=== PATIENT | male | born 1950 | race Caucasian/White ===

== ENCOUNTER → 2018-09-21 10:00 | Outpatient (CLI) | payer MEDICARE, SELFPAY ==
[2018-09-21 11:59] LABS: Alanine Aminotransferase 32 IU/L (21-72); Albumin 4.5 g/dL (3.5-5.0); Albumin Globulin Ratio 1.8 (1.0-2.8); Alkaline Phosphatase 55 U/L (38-126); Aspartate Aminotransferase 33 IU/L (17-59); BUN Creatinine Ratio 18.2 (6-22); Bilirubin Total 0.7 mg/dL (0.2-1.3); Blood Urea Nitrogen 20 mg/dL (9-20); Calcium 9.8 mg/dL (8.4-10.2); Carbon Dioxide 30 mmol/L (22-32); Chloride 101 mmol/L (98-107); Estimated Glomerular Filt Rate > 60.0 mL/min (>60); Globulin 2.5 g/dL (1.7-4.1); Glucose 75 mg/dL (80-110); HEMOLYSIS < 15 (0-50); Potassium 4.3 mmol/L (3.4-5.1); Sodium 140 mmol/L (137-145)
[2018-09-21 12:12] LABS: Free T4, Direct Thyroxine 1.13 ng/dL (0.78-2.19)
[2018-09-21 12:26] LABS: Prostate Specific Antigen Scrn 3.77 ng/mL (0.1-4.0); Thyroid Stimulating Hormone 2.58 uIU/mL (0.47-4.68)
== END ==
PROVIDERS: Visit Provider Internal Medicine
DX: E03.9 Hypothyroidism, unspecified (principal); I65.21 Occlusion and stenosis of right carotid artery; Z12.5 Encounter for screening for malignant neoplasm of prostate; Z13.1 Encounter for screening for diabetes mellitus; Z13.6 Encounter for screening for cardiovascular disorders; Z79.899 Other long term (current) drug therapy
CPT/HCPCS: 36415; 80053; 84439; 84443; G0103

== ENCOUNTER 2019-08-31 07:04 | Observation (INO) | payer MEDICARE, SELFPAY ==
[2019-08-31] VITALS (7 sets, daily range): BP systolic 105–161; BP diastolic 68–85; PULSE 55–69; RESP 12–16; TEMP 36.2–36.9; O2SAT 95–100; BMI 23.6
--- NOTE | 2019-08-31 07:18 | ED.GENADULT ---
HPI - General Adult General Chief complaint: Upper Respiratory Symptoms Stated complaint: walnut stuck in esophagus Time Seen by Provider: 08/31/19 07:05 Source: patient Mode of arrival: Ambulatory Limitations: no limitations History of Present Illness HPI narrative: 68-year-old male nonsmoker with history of throat cancer status post radical neck, chemotherapy and radiation many years ago presents with his in the chief complaint of a suspected esophageal foreign body. Last evening he was eating a cookie that had wall not in the frosting and he felt it get stuck. He has had a foreign body sensation ever since. He is guarding his secretions and is able to get some liquids down with extreme difficulty. He has had esophageal foreign bodies removed on a few prior occasions as well as esophageal dilation. He denies any fever chills. He has no chest pain or shortness of breath. Related Data Home Medications Medication Instructions Recorded Confirmed AMINOBENZOIC ACID/BIOTIN/CA (#B 1 cap PO Q DAY #0 02/09/11 10/03/18 COMPLEX) Coenzyme Q10/Vitamin E (#COQ10 IN 100 mg PO #0 02/09/11 10/03/18 OIL 100 MG-30 IU) Garlic (#GARLIC) 1 tab PO Q DAY #0 02/09/11 10/03/18 folic acid 0.4 mg PO QDAY #0 01/27/17 10/03/18 hyalur ac-chond sul-colg II-AA 20 mg PO QDAY #0 01/27/17 10/03/18 [Hyaluronic Acid (chond-collgn)] Previous Rx's Medication Instructions Recorded trazodone 50 mg tablet 50 mg PO BEDTIME PRN #30 tab 10/03/18 levothyroxine 88 mcg tablet 88 mcg PO Q DAY #90 tab 02/26/19 amoxicillin 500 mg tablet 500 mg PO TID #42 tab 05/09/19 clopidogrel 75 mg tablet See Rx Instructions .ROUTE 05/21/19 .COMPLEX #90 tablet pravastatin 20 mg tablet See Rx Instructions .ROUTE 05/21/19 .COMPLEX #90 tablet Allergies Allergy/AdvReac Type Severity Reaction Status Date / Time atorvastatin [From LIPITOR] AdvReac Intermediate MUSCLE Verified 08/31/19 07:13 rosuvastatin [From CRESTOR] AdvReac Intermediate Verified 08/31/19 07:13 Review of Systems Constitutional Constitutional: Denies chills, Denies fatigue, Denies fever(s), Denies frequent falls, Denies lethargy and Denies weakness Eyes Eyes: Denies change in vision, Denies eye discharge, Denies irritation and Denies loss of vision ENT Ears, Nose, Mouth, and Throat: Denies change in voice, Denies dizziness, Denies neck pain, Denies sore throat and Denies throat swelling Comments: foreign body Cardiovascular Cardiovascular: Denies chest pain, Denies irregular heart rhythm, Denies lightheadedness, Denies palpitations, Denies dyspnea, Denies dyspnea on exertion and Denies orthopnea Respiratory Respiratory: Denies cough, Denies dyspnea, Denies dyspnea on exertion and Denies wheezing Gastrointestinal Gastrointestinal: Denies abdominal pain, Denies change in bowel habits, Denies diarrhea, Denies nausea and Denies vomiting Musculoskeletal Musculoskeletal: Denies neck pain and Denies numbness Integumentary/Breasts Skin/Breast: Denies pruritus, Denies erythema, Denies rash and Denies wounds Neurologic Neurologic: Denies behavioral changes, Denies confusion, Denies dizziness, Denies frequent falls, Denies loss of vision, Denies numbness and Denies weakness Psychiatric Psychiatric: Denies anxiety, Denies behavioral changes, Denies confusion, Denies depression, Denies homicidal ideation and Denies suicidal ideation Endocrine Endocrine: Denies fatigue, Denies flushing and Denies palpitations Hematologic/Lymphatic Hematologic/Lymphatic: Denies easy bruising Allergic/Immunologic Allergic/Immunologic: Denies urticaria, Denies throat swelling and Denies wheezing Patient History Medical History Acquired hypothyroidism (Chronic 02/01/11) Carotid bruit (Chronic 02/01/11) Left inguinal hernia (Inactive) Occlusion of right carotid artery (Chronic 04/14/15) Surgical History History of esophageal dilatation (Inactive 01/27/12) Status post colonoscopy (Inactive) Family History Brother Age: 66 Diabetes mellitus Family history of diabetes mellitus (DM) Brother Age: 64 Family history of diabetes mellitus (DM) Diabetes mellitus Brother Age: 58 Family history of diabetes mellitus (DM) Diabetes mellitus Father Heart disease Grandfather Heart disease Mother Cancer Grandfather Heart disease Social History marital status: number of children: 0 household members: spouse lives independently: Yes caregiver/support person: No housing: house pets and animals: No education level: other (4 YEAR [employer]) occupational status: other (Retired) current occupational exposures/hazards: No Previous occupational history: Account Resolution Analyst travel history: recent ([place], 1 month in [place], April) leisure activities: exercise (Bicycling.) and reading Smoking Status: Never smoker Tobacco: How many years used: 0 quit status: quit date established (Never Started) second hand exposure: No alcohol intake: current substance use type: does not use and marijuana (Occasional.) Smoking Status: Never smoker alcohol intake frequency: holidays/special occasions only Substance Use Type: does not use Exam Narrative Exam Narrative: GEN: AOx3 and in mild distress EYES: Pupils are equal, round, and reactive to light and accommodation. Extraoccular muscles are intact bilaterally. There is no subconjunctival hemorrhage or exudate. ENT: no FB noted, airway patent CHEST: Lungs are clear to auscultation bilaterally and free of wheezes, rales, or rhonchi. Heart rate is regular rhythm, there are no murmurs, clicks, rubs, or gallops. There is no chest wall tenderness. ABD: Abdomen is soft and nontender. There is no guarding or rebound. Bowel sounds are normal in all 4 quadrants. There is no mass or organomegaly. EXT: Full painless ROM of all extremities with no loss of sensation or strength. SKIN: Warm, pink, and dry. No erythema or rash Initial Vital Signs Initial Vital Signs: Vital Signs Temperature 98.5 F 08/31/19 07:08 Pulse Rate 66 08/31/19 07:08 Respiratory Rate 15 08/31/19 07:08 Blood Pressure 161/85 H 08/31/19 07:08 Pulse Oximetry 99 08/31/19 07:08 Course Course Course Narrative: patient given glucagon and warmed soda, no resolution in symptoms. COVID ordered. Surgery called Dr. Henderson will take to endoscopy this morning Orders Ordered: Lactated Ringer's (Lactated Ringers) 1,000 mls @ 200 mls/hr IV CONT TEJAS Last Admin: 08/31/19 10:18 Dose: 200 mls/hr Documented by: JCANTRE Discontinued Medications Fentanyl (Sublimaze) 250 mcg IV INTRA-OP ONE Stop: 08/31/19 10:13 Glucagon (Glucagen) 1 mg IV NOW ONE Stop: 08/31/19 07:19 Last Admin: 08/31/19 07:31 Dose: 1 mg Documented by: KBROTEM Lidocaine HCl (Lidocaine Hcl) 20 ml TOP NOW ONE Stop: 08/31/19 10:14 Midazolam HCl (Versed) 5 mg IV INTRA-OP ONE Stop: 08/31/19 10:13 Vital Signs Vital signs: Vital Signs - 8 hr 08/31/19 07:08 Temperature 98.5 F Pulse Rate 66 Respiratory Rate 15 Blood Pressure 161/85 H Pulse Oximetry 99 Medical Decision Making Lab Data Labs: Lab Results 08/31/19 Range/Units 08:21 COVID-19 PCR Negative (Negative) Discharge Plan Departure Patient Disposition: Admitted to Surgery Clinical Impression: Esophageal foreign body Qualifiers: Encounter type: initial encounter Qualified Code(s): T18.108A - Unspecified foreign body in esophagus causing other injury, initial encounter Discharge Date/Time: 08/31/19 10:02 Admit Date/Time: 08/31/19 09:39 Admit Provider: Adithya Henderson
--- NOTE | 2019-08-31 07:28 | PC.NURSE ---
pt able to swallow secretions but unable to take PO at this time. Pt has a walnut stuck in esophagus. Pt has hx of same.
[2019-08-31] MEDS: GLUCAGON,HUMAN RECOMBINANT 1 MG/ML VIAL IV (07:31)
--- NOTE | 2019-08-31 08:04 | PC.NURSE ---
Pt able to take PO pepsi,sx improved since arriving but he can still tell its in his esophagus
[2019-08-31 09:23] LABS: COVID19 -Nasal RAPID Negative (Negative)
[2019-08-31] MEDS: LACTATED RINGERS 1,000 ML 200 ML IV (10:18)
--- NOTE | 2019-08-31 10:42 | SUR.OPER ---
See Anesthesia notes for vitals and medication administration
--- NOTE | 2019-08-31 10:42 | PM.OP.ENDO ---
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 Benson we were able to proceed safely. Anesthesiologist was utilized because the patient has history of carcinoma of the pharynx and is status post radiation with total occlusion of the right internal carotid and 50% occlusion or stenosis of the left internal carotid. Patient was properly identified during surgical pause topical pharyngeal Cetacaine spray was administered the flexible fiberoptic gastroscope inserted transorally into the hypopharynx where there was a large food bolus impacted. This was sub divided and gently advanced into the esophagus and into the stomach this was followed by irrigation. Finally I inspected the area of stricture from prior radiation and I see no evidence of recurrent tumor. Numerous photographs of this area were taken. Procedure was very well tolerated. Scope withdrawal time: 4 Sedation minutes: 8 Findings: stricture
--- NOTE | 2019-08-31 14:05 | SUR.PHASEII ---
Late entry: Pt gradually had return of swallow reflex. Tolerated swallowing water, left soon after that occurred and left in stable condition.
== END 2019-08-31 11:23 | disposition home or self-care (01) ==
LOC: ED 08:52 → AC 09:40
PROVIDERS: Admitting Provider Surgery; Emergency Provider Emergency Medicine; PCP Internal Medicine; Referring Provider Emergency Medicine; Visit Provider Surgery
PROC: 0DJ08ZZ Inspection of Upper Intestinal Tract, Via Natural or Artificial Opening Endoscopic (ICD-10-PCS; CPT 43235; principal; 2019-08-31 10:00)
DX: T18.128A Food in esophagus causing other injury, initial encounter (principal); R13.10 Dysphagia, unspecified; Z85.819 Personal history of malignant neoplasm of unspecified site of lip, oral cavity, and pharynx; Z11.59 Encounter for screening for other viral diseases
CPT/HCPCS: 43247; 36415; 87635; 96374; 99152; 99284; G0378; J1610

== ENCOUNTER → 2019-10-08 07:47 | Outpatient (CLI) | payer MEDICARE, SELFPAY ==
[2019-10-08 08:46] LABS: Alanine Aminotransferase 38 IU/L (<50); Albumin 4.2 g/dL (3.5-5.0); Albumin Globulin Ratio 1.8 (1.0-2.8); Alkaline Phosphatase 56 U/L (38-126); Aspartate Aminotransferase 45 IU/L (17-59); BUN Creatinine Ratio 22.4 (6-22); Bilirubin Total 0.5 mg/dL (0.2-1.3); Blood Urea Nitrogen 24 mg/dL (9-20); Calcium 9.4 mg/dL (8.4-10.2); Carbon Dioxide 30 mmol/L (22-32); Chloride 103 mmol/L (98-107); Cholesterol 187 mg/dL (140-199); Estimated Glomerular Filt Rate > 60.0 mL/min (>60); Globulin 2.4 g/dL (1.7-4.1); Glucose 94 mg/dL (80-110); HDL Cholesterol 74 mg/dL (40-60); HEMOLYSIS < 15 (0-50); LDL Cholesterol Calculated 98 mg/dL (<100); Potassium 4.4 mmol/L (3.4-5.1); Sodium 137 mmol/L (137-145); Total Protein 6.6 g/dL (6.3-8.2); Triglycerides 75 mg/dL (35-150)
[2019-10-08 08:59] LABS: Free T4, Direct Thyroxine 0.99 ng/dL (0.78-2.19)
[2019-10-08 09:15] LABS: Prostate Specific Antigen Scrn 3.32 ng/mL (0.1-4.0)
[2019-10-08 10:13] LABS: Thyroid Stimulating Hormone 2.57 uIU/mL (0.47-4.68)
== END ==
PROVIDERS: PCP Internal Medicine; Referring Provider Internal Medicine; Visit Provider Internal Medicine
DX: E03.9 Hypothyroidism, unspecified (principal); I65.21 Occlusion and stenosis of right carotid artery; Z12.5 Encounter for screening for malignant neoplasm of prostate; Z13.220 Encounter for screening for lipoid disorders; Z13.6 Encounter for screening for cardiovascular disorders
CPT/HCPCS: 36415; 80053; 80061; 84439; 84443; G0103

== ENCOUNTER → 2020-10-06 08:21 | Outpatient (CLI) | payer MEDICARE, SELFPAY ==
[2020-10-06 08:53] LABS: COVID19 -Nasal RAPID Negative (Negative)
== END ==
PROVIDERS: PCP Internal Medicine; Visit Provider Physician Assistant
DX: Z20.822 Contact with and (suspected) exposure to COVID-19 (principal)
CPT/HCPCS: 87635

== ENCOUNTER → 2020-10-30 07:30 | Outpatient (CLI) | payer MEDICARE, SELFPAY ==
[2020-10-30 09:00] LABS: Alanine Aminotransferase 34 IU/L (<50); Albumin 4.3 g/dL (3.5-5.0); Albumin Globulin Ratio 2.3 (1.0-2.8); Alkaline Phosphatase 60 U/L (38-126); Aspartate Aminotransferase 46 IU/L (17-59); BUN Creatinine Ratio 28.4 (6-22); Bilirubin Total 0.7 mg/dL (0.2-1.3); Blood Urea Nitrogen 27 mg/dL (9-20); Calcium 9.4 mg/dL (8.4-10.2); Carbon Dioxide 27 mmol/L (22-32); Chloride 104 mmol/L (98-107); Cholesterol 193 mg/dL (140-199); Estimated Glomerular Filt Rate > 60.0 mL/min (>60); Globulin 1.9 g/dL (1.7-4.1); Glucose 88 mg/dL (80-110); HDL Cholesterol 90 mg/dL (40-60); HEMOLYSIS < 15 (0-50); LDL Cholesterol Calculated 88 mg/dL (<100); Potassium 4.4 mmol/L (3.4-5.1); Sodium 136 mmol/L (137-145); Total Protein 6.2 g/dL (6.3-8.2); Triglycerides 76 mg/dL (35-150)
[2020-10-30 09:14] LABS: Free T4, Direct Thyroxine 1.09 ng/dL (0.78-2.19)
[2020-10-30 09:27] LABS: Prostate Specific Antigen Scrn 4.53 ng/mL (0.1-4.0)
[2020-10-30 09:28] LABS: Thyroid Stimulating Hormone 2.23 uIU/mL (0.47-4.68)
== END ==
PROVIDERS: PCP Internal Medicine; Referring Provider Internal Medicine; Visit Provider Internal Medicine
DX: I70.90 Unspecified atherosclerosis (principal); E03.9 Hypothyroidism, unspecified; Z12.5 Encounter for screening for malignant neoplasm of prostate; E78.2 Mixed hyperlipidemia
CPT/HCPCS: 36415; 80053; 80061; 84439; 84443; G0103

== ENCOUNTER → 2020-11-13 14:06 | Outpatient (CLI) | payer MEDICARE, SELFPAY ==
[2020-11-14 11:16] LABS: PSA Free % 17.3 % (.); PSA, Total 6.4 ng/mL (0.0-4.0)
== END ==
PROVIDERS: PCP Internal Medicine; Referring Provider Internal Medicine; Visit Provider Internal Medicine
DX: R97.20 Elevated prostate specific antigen [PSA] (principal)
CPT/HCPCS: 36415; 84153; 84154

== ENCOUNTER → 2021-04-01 14:37 | Outpatient (CLI) | payer MEDICARE, SELFPAY ==
[2021-04-01 16:52] LABS: BUN Creatinine Ratio 20.9 (6-22); Blood Urea Nitrogen 24 mg/dL (9-20); Calcium 9.4 mg/dL (8.4-10.2); Carbon Dioxide 30 mmol/L (22-32); Chloride 104 mmol/L (98-107); Estimated Glomerular Filt Rate > 60.0 mL/min (>60); Glucose 83 mg/dL (80-110); HEMOLYSIS < 15 (0-50); Potassium 4.2 mmol/L (3.4-5.1); Sodium 138 mmol/L (137-145)
== END ==
PROVIDERS: PCP Internal Medicine; Referring Provider Surgery Vascular Surgery; Visit Provider Surgery Vascular Surgery
DX: I65.23 Occlusion and stenosis of bilateral carotid arteries (principal)
CPT/HCPCS: 36415; 80048

== ENCOUNTER → 2021-04-06 09:09 | Outpatient (CLI) | payer MEDICARE, SELFPAY ==
--- NOTE | 2021-04-06 | DI.CT.S_ITS ---
PROCEDURE: CT ANGIO HEAD AND NECK INDICATIONS: BILATERAL CAROTID ARTERY STENOSIS TECHNIQUE: Pre-contrast 4.5 mm thick sections acquired from the foramen magnum to the vertex. After the administration of intravenous contrast, 1 mm thick sections acquired from the aortic arch through the [place]. Post-contrast 4.5 mm thick sections then re-acquired from the foramen magnum to the vertex. 3-dimensional zarcola-knatlfkfu-tgtfryjvjc (MIP) and/or volume rendering reformats were acquired of the central intracranial vasculature and neck separately. COMPARISON: None. FINDINGS: Image quality: Excellent. BRAIN: CSF spaces: Ventricles are normal in size and shape. Basal cisterns are patent. No extra-axial fluid collections. Brain: No midline shift. No intracranial bleeds or masses. Jett-white matter interface appears intact. Skull and face: Calvarium and facial bones appear intact, without suspicious lesions. Orbits appear normal. Sinuses: Sinuses and mastoids are clear. HEAD CT ANGIOGRAPHY: Anterior circulation: Complete occlusion of the right ICA with the exception of some minimal opacification of the carotid terminus due to retrograde flow across the jcitnu-hp-Xnlbhv. The left intracranial ICA is widely patent. No hemodynamically significant stenosis of the visualized anterior or middle cerebral artery branches. Posterior circulation: V4 segments are patent. Cerebellar arteries and posterior arteries and basilar artery appear normal. NECK CT ANGIOGRAPHY: Carotid system: Standard 3 vessel aortic arch anatomy. The bilateral common carotid arteries are widely patent, with the exception of mild athero narrowing at the distal common carotid arteries near the bifurcation. There is moderate narrowing of the bilateral carotid bulbs, right greater than left. Complete occlusion of the right extracranial internal carotid artery. Moderate to high-grade stenosis of the left ICA origin for short segment with no narrowing of the remainder of the left ICA. Posterior circulation: Hypoplastic right vertebral artery. No significant atherosclerotic narrowing of the extracranial vertebral arteries. Soft tissues: Visualized neck soft tissues demonstrate no suspicious abnormalities. Bones: No suspicious bony lesions. Visualized cervical spine appears normally aligned. IMPRESSION: Complete occlusion of the entire right internal carotid artery. High-grade stenosis at the left ICA origin for short segment. Moderate atherosclerotic narrowing of the bilateral carotid bifurcations/bulbs. Any quantitative measurements of stenosis were performed using NASCET criteria. Dictated by: Catarino Moise M.D. on 04/06/2021 at 12:00 Approved by: Catarino Moise M.D. on 04/06/2021 at 12:30
== END ==
PROVIDERS: PCP Internal Medicine; Referring Provider Surgery Vascular Surgery; Visit Provider Surgery Vascular Surgery
DX: I65.23 Occlusion and stenosis of bilateral carotid arteries (principal)
CPT/HCPCS: 70496; 70498

== ENCOUNTER → 2021-06-26 07:07 | Outpatient (CLI) | payer MEDICARE, SELFPAY ==
[2021-06-27 12:10] LABS: PSA Free % 16.6 % (.); PSA, Total 3.5 ng/mL (0.0-4.0)
== END ==
PROVIDERS: PCP Internal Medicine; Referring Provider Internal Medicine; Visit Provider Internal Medicine
DX: R97.20 Elevated prostate specific antigen [PSA] (principal)
CPT/HCPCS: 36415; 84153; 84154

== ENCOUNTER → 2021-12-29 08:09 | Outpatient (CLI) | payer MEDICARE, SELFPAY ==
[2021-12-29 09:24] LABS: Alanine Aminotransferase 40 IU/L (<50); Albumin 4.3 g/dL (3.5-5.0); Albumin Globulin Ratio 1.8 (1.0-2.8); Alkaline Phosphatase 61 U/L (38-126); Aspartate Aminotransferase 45 IU/L (17-59); BUN Creatinine Ratio 21.6 (6-22); Bilirubin Total 0.6 mg/dL (0.2-1.3); Blood Urea Nitrogen 22 mg/dL (9-20); Calcium 9.3 mg/dL (8.4-10.2); Carbon Dioxide 29 mmol/L (22-32); Chloride 101 mmol/L (98-107); Cholesterol 190 mg/dL (140-199); Estimated Glomerular Filt Rate > 60 mL/min (>60); Globulin 2.4 g/dL (1.7-4.1); Glucose 88 mg/dL (80-110); HDL Cholesterol 74 mg/dL (40-60); HEMOLYSIS < 15 (0-50); LDL Cholesterol Calculated 105 mg/dL (<100); Potassium 4.2 mmol/L (3.4-5.1); Sodium 138 mmol/L (137-145); Total Protein 6.7 g/dL (6.3-8.2); Triglycerides 57 mg/dL (35-150)
[2021-12-29 09:56] LABS: Prostate Specific Antigen 3.88 ng/mL (0.10-4.00)
[2021-12-29 10:05] LABS: Free T4, Direct Thyroxine 1.12 ng/dL (0.78-2.19)
== END ==
PROVIDERS: PCP Internal Medicine; Referring Provider Internal Medicine; Visit Provider Internal Medicine
DX: E03.9 Hypothyroidism, unspecified (principal); R97.20 Elevated prostate specific antigen [PSA]; E78.2 Mixed hyperlipidemia
CPT/HCPCS: 36415; 80053; 80061; 84153; 84439; 84443

== ENCOUNTER → 2022-03-15 10:22 | Outpatient (CLI) | payer MEDICARE, SELFPAY ==
[2022-03-15 14:31] LABS: COVID19 -Nasal RAPID Negative (Negative)
== END ==
PROVIDERS: PCP Internal Medicine; Visit Provider Surgery
DX: Z20.822 Contact with and (suspected) exposure to COVID-19 (principal); Z01.812 Encounter for preprocedural laboratory examination
CPT/HCPCS: 87635; C9803

== ENCOUNTER 2022-03-16 09:39 | Day surgery (SDC) | payer MEDICARE, SELFPAY ==
[2022-03-16 10:13] VITALS: BMI 24.3
[2022-03-16] MEDS: LACTATED RINGERS 1,000 ML 42 ML IV (10:32)
[2022-03-16 10:34] VITALS: BP 135/80; PULSE 58; RESP 16; TEMP 36.5; O2SAT 100
--- NOTE | 2022-03-16 11:25 | PM.HP.1 ---
History of Present Illness History of Present Illness Date Patient Seen: 03/16/22 Time Patient Seen: 11:25 Chief complaint: SDC Narrative: The patient presents for colorectal screening. Personal history of colonic polyps, last colonoscopy 5 years ago. No personal or family history of colon cancer. On further history denies any recent gastrointestinal symptoms. No nausea, vomiting, abdominal pain, loss of appetite, unexplained weight loss, change in bowel habits, or blood per rectum. Patient History Medical History Acquired hypothyroidism (02/01/11) Atherosclerosis Carotid bruit (02/01/11) Elevated PSA Left inguinal hernia Mixed hyperlipidemia Occlusion of right carotid artery (04/14/15) Surgical History History of esophageal dilatation (01/27/12) Status post colonoscopy Family & Social History Family History Brother Age: 68 Diabetes mellitus Family history of diabetes mellitus (DM) Brother Age: 66 Family history of diabetes mellitus (DM) Diabetes mellitus Brother Age: 60 Family history of diabetes mellitus (DM) Diabetes mellitus Father Heart disease Grandfather Heart disease Mother Cancer Grandfather Heart disease Social History: household members spouse lives independently Yes caregiver/support person No Tobacco & Substance use: Smoking Status Never smoker alcohol intake current alcohol intake frequency a few times a week Substance Use Type does not use Meds Home Medications and Allergies Home Medications Medication Instructions Recorded Confirmed Type folic acid 400 mcg tablet 0.4 mg PO QDAY ##0 01/27/17 03/16/22 History hyalur ac-chond sul-colg II-AA 40 20 mg PO QDAY ##0 01/27/17 03/16/22 History mg-80 mg-400 mg capsule (Hyaluronic Acid(with chondroitin-collagenII)) Coenzyme Q10/Vitamin E 500 mg PO DAILY ##0 10/05/19 03/16/22 History turmeric root extract 500 mg 500 mg PO DAILY 10/05/19 03/16/22 History capsule clopidogrel 75 mg tablet 75 mg PO DAILY #90 tabs 12/21/21 03/16/22 Rx levothyroxine 88 mcg tablet 88 mcg PO Q DAY #90 tabs 12/21/21 03/16/22 Rx pravastatin 20 mg tablet 20 mg PO BEDTIME #90 tabs 12/21/21 03/16/22 Rx Allergies Allergy/AdvReac Type Severity Reaction Status Date / Time atorvastatin [From LIPITOR] AdvReac Intermediate MUSCLE Verified 03/16/22 10:10 rosuvastatin [From CRESTOR] AdvReac Intermediate Verified 03/16/22 10:10 Exam Vital Signs (past 8 hours): - 03/16/22 10:34 Temperature 97.7 F Pulse Rate 58 L Respiratory Rate 16 Blood Pressure 135/80 Pulse Oximetry 100 Oxygen Delivery Method Room Air Oxygen Delivery Method Room Air Narrative Exam Narrative: General adult man alert oriented no acute distress Abdomen soft nontender nondistended Assessment & Plan Assessment and plan (1) Personal history of colonic polyps: Status: Acute Assessment & Plan narrative: The patient requires colorectal screening and colonoscopy is recommended. Technical details were discussed. Risks, benefits, alternatives explained. Risks including but not limited to myocardial infarction, aspiration, bleeding, pain, missed lesion, incomplete examination, need for further radiographic studies, colonic perforation, and need for major abdominal surgery were discussed. All questions were answered to their satisfaction, and they are in agreement with this plan. Time Spent With Patient Critical Care time: I spent a total of [] minutes of critical care time on this patient's care today; this time is exclusive of procedural time.
--- NOTE | 2022-03-16 11:26 | PM.OP.COLON ---
Operative Date/Time/Diagnoses Date of procedure: 03/16/22 Time of procedure: 11:26 Pre-op diagnosis: Personal history of colonic polyps Post-op diagnosis: same Procedure & Clinicians Study performed: Colonoscopy Same procedure as scheduled: Yes Indications: Personal history of colonic polyps Surgeon: Rio Cooper Procedure Notes Procedure in detail: The history and physical was performed/updated and the patient is ASA class is 3. The procedure was discussed in detail with the patient. Potential risks complications including infection, bleeding, missed diagnosis, perforation, need for surgery, and were explained. Their questions were answered and informed consent was obtained. Patient was brought to the procedure room and placed standard monitoring equipment. The patient's vital signs were monitored continuously throughout the entire procedure. Prior to starting time-out was performed. The patient was placed in the left lateral recumbent position. Procedural sedation was administered by anesthesia. Examination began with a thorough inspection of the perianal area there was no evidence of fissures, fistulae, external hemorrhoids or cutaneous malignancy. The colonoscopy scope was then placed into the anal canal and was advanced to the cecum, which was identified by the ileocecal valve, the appendiceal orifice and the confluence of the taenia. The scope was then slowly withdrawn examining colon thoroughly in all directions, irrigating it of any residual stool. FINDINGS 1. No masses polyps or inflammation 2. Internal hemorrhoids The patient tolerated the procedure well. They will be discharged once criteria are met. The prep was of good/excellent quality. The withdrawl time was 7 minutes. Specimen(s): none sent Impression: Normal colonoscopy Post-procedure Recommendations: Colonoscopy in 10 years and High fiber diet Disposition: same day surgery
[2022-03-16 12:00] VITALS: BP 95/65; PULSE 52; RESP 20; TEMP 36.1; O2SAT 100
[2022-03-16 12:04] VITALS: BP 97/70; PULSE 57; RESP 17; TEMP 36.1; O2SAT 95
[2022-03-16 12:08] VITALS: BP 100/72; PULSE 50; RESP 18; TEMP 36.3; O2SAT 96
[2022-03-16 12:20] VITALS: BP 100/69; PULSE 51; RESP 17; O2SAT 96
--- NOTE | 2022-03-16 12:26 | SUR.PHASEII ---
1226: Pt A&Ox4, denies any distress, abdomen soft, and ready to discharge home. Discharge instructions reviewed with pt with time allowed for questions. IV DC'd intact. Pt left unit via w/c to ER entrance with all personal belongings and written instructions. Spouse to transport pt home.
== END 2022-03-16 12:28 | disposition home or self-care (01) ==
PROVIDERS: PCP Internal Medicine; Referring Provider Surgery; Visit Provider Surgery
PROC: 0DJD8ZZ Inspection of Lower Intestinal Tract, Via Natural or Artificial Opening Endoscopic (ICD-10-PCS; CPT 45378; principal; 2022-03-16 10:45)
DX: Z86.010 Personal history of colon polyps (principal); K64.8 Other hemorrhoids
CPT/HCPCS: 45378; J2704

== ENCOUNTER → 2022-08-04 12:43 | Outpatient (CLI) | payer MEDICARE, SELFPAY ==
--- NOTE | 2022-08-04 | DI.MRI.S_ITS ---
PROCEDURE: MR KNEE RT WO CON INDICATIONS: RIGHT KNEE PAIN TECHNIQUE: Noncontrast sagittal PD fast spin echo and T2 fast spin echo with fat saturation, sagittal 3-D FLASH with fat saturation; coronal T1 spin echo and PD fast spin echo with fat saturation, and axial PD fast spin echo with fat saturation through the knee. COMPARISON: None. FINDINGS: Image quality: Excellent. Menisci: The medial and lateral menisci demonstrate normal morphology and internal signal. The meniscal root ligaments are intact. Cruciate ligaments: The anterior and posterior cruciate ligaments are intact. Medial structures: The medial collateral ligament appears mildly thickened near its femoral insertion.. The posterior oblique ligament, semimembranosus tendon insertions, oblique popliteal ligament, and meniscocapsular junction appear intact. Visualized portions of the pes anserinus tendons appear normal. No abnormal bursal fluid. Lateral structures: The lateral collateral ligament is thickened at its femoral insertion. The long and short heads of the biceps femoris tendon appear intact. The popliteus tendon appears normal; the popliteofibular ligament appears intact. Iliotibial band appears normal. Anterior structures: Distal quadriceps tendinosis at its superior patellar insertion is seen. Proximal patellar tendinosis at its inferior patellar insertion is also noted. Patellar alignment is normal. No femoral trochlear dysplasia or ventral trochlear prominence. No edema in the infrapatellar fat pad. Bones and cartilage: No bone marrow contusions or fractures. 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 Joint space: There is small knee joint fluid. There is a tiny Ng's cyst. Normal appearing synovial plicae are incidentally noted. IMPRESSION: 1. 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 No fracture or dislocation. 2. No evidence of focal meniscal tear. 3. Low-grade MCL and LCL sprain/partial-thickness tear near their femoral condylar insertions. The cruciate ligaments are intact. 4. Distal quadriceps tendinosis and proximal patellar tendinosis. No tendon rupture. 5. Small joint effusion and tiny Ng's cyst. No gross loose bodies. Dictated by: Lisandro Gaviria M.D. on 08/04/2022 at 14:54 Approved by: Lisandro Gaviria M.D. on 08/04/2022 at 15:12
== END ==
PROVIDERS: PCP Internal Medicine; Referring Provider Orthopaedic Surgery; Visit Provider Orthopaedic Surgery
DX: S83.411A Sprain of medial collateral ligament of right knee, initial encounter (principal); S76.111A Strain of right quadriceps muscle, fascia and tendon, initial encounter; S83.421A Sprain of lateral collateral ligament of right knee, initial encounter; M17.11 Unilateral primary osteoarthritis, right knee; M94.261 Chondromalacia, right knee; M25.561 Pain in right knee; M25.562 Pain in left knee
CPT/HCPCS: 73721

== ENCOUNTER → 2023-01-07 08:23 | Outpatient (CLI) | payer MEDICARE, SELFPAY ==
[2023-01-07 11:00] LABS: Free T4, Direct Thyroxine 1.19 ng/dL (0.78-2.19)
[2023-01-07 11:14] LABS: Thyroid Stimulating Hormone 1.73 uIU/mL (0.47-4.68)
[2023-01-07 11:18] LABS: HEMOLYSIS < 15 (0-50); Prostate Specific Antigen 7.06 ng/mL (0.10-4.00)
[2023-01-07 11:26] LABS: Alanine Aminotransferase 33 IU/L (<50); Albumin 4.2 g/dL (3.5-5.0); Albumin Globulin Ratio 1.8 (1.0-2.8); Alkaline Phosphatase 54 U/L (38-126); Aspartate Aminotransferase 46 IU/L (17-59); Bilirubin Total 0.8 mg/dL (0.2-1.3); Blood Urea Nitrogen 21 mg/dL (9-20); Calcium 9.6 mg/dL (8.4-10.2); Carbon Dioxide 28 mmol/L (22-32); Chloride 104 mmol/L (98-107); Cholesterol 180 mg/dL (140-199); Estimated Glomerular Filt Rate > 60 mL/min (>60); Globulin 2.4 g/dL (1.7-4.1); Glucose 93 mg/dL (80-110); HDL Cholesterol 70 mg/dL (40-60); LDL Cholesterol Calculated 98 mg/dL (<100); Potassium 4.8 mmol/L (3.4-5.1); Sodium 136 mmol/L (137-145); Total Protein 6.6 g/dL (6.3-8.2); Triglycerides 60 mg/dL (35-150)
== END ==
PROVIDERS: PCP Internal Medicine; Referring Provider Internal Medicine; Visit Provider Internal Medicine
DX: R97.20 Elevated prostate specific antigen [PSA] (principal); E78.2 Mixed hyperlipidemia; E03.9 Hypothyroidism, unspecified
CPT/HCPCS: 36415; 80053; 80061; 84153; 84439; 84443

== ENCOUNTER → 2023-01-17 11:38 | Outpatient (CLI) | payer MEDICARE, SELFPAY ==
[2023-01-21 10:22] LABS: PSA Free % 22.4 % (.); PSA, Total 2.9 ng/mL (0.0-4.0)
== END ==
PROVIDERS: PCP Internal Medicine; Referring Provider Internal Medicine; Visit Provider Internal Medicine
DX: R97.20 Elevated prostate specific antigen [PSA] (principal)
CPT/HCPCS: 36415; 84153; 84154

== ENCOUNTER → 2023-08-10 11:13 | Outpatient (CLI) | payer MEDICARE, SELFPAY ==
--- NOTE | 2023-08-10 11:13 | DI.RAD.S_ITS ---
PROCEDURE: ESOPHOGRAM W/AIR INDICATIONS: esophageal stricture COMPARISON: None. FINDINGS: Function: There is normal esophageal peristalsis. No elicited gastroesophageal reflux. There was delayed transit of the barium tablet through a focal stenosis at the thoracic inlet. Only after copious amounts of water were consumed by the patient did the tablet dissolve and pass into the gastric fundus. Morphology: Air-contrast images demonstrate normal mucosal morphology. A focal stenosis is present at the level of the thoracic inlet. Limited images of the stomach demonstrate normal appearance. IMPRESSION: 1. Focal stenosis present at the level of the thoracic inlet. The patient was not able to ingest the barium tablet. Only after the tablet partially dissolved did it pass into the distal esophagus. 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 2. No esophageal dysmotility or other mucosal abnormalities. Dictated by: Izabel Vazquez M.D. on 08/10/2023 at 16:43 Approved by: Izabel Vazquez M.D. on 08/10/2023 at 16:52
== END ==
PROVIDERS: PCP Internal Medicine; Referring Provider Internal Medicine; Visit Provider Internal Medicine
DX: K22.2 Esophageal obstruction (principal)
CPT/HCPCS: 74220

== ENCOUNTER → 2024-01-05 07:11 | Outpatient (CLI) | payer MEDICARE, SELFPAY ==
[2024-01-05 09:24] LABS: Alanine Aminotransferase 28 IU/L (<50); Albumin 4.1 g/dL (3.5-5.0); Albumin Globulin Ratio 2.1 (1.0-2.8); Alkaline Phosphatase 61 U/L (38-126); Aspartate Aminotransferase 38 IU/L (17-59); BUN Creatinine Ratio 25.3 (6-22); Bilirubin Total 0.8 mg/dL (0.2-1.3); Blood Urea Nitrogen 25 mg/dL (9-20); Calcium 9.6 mg/dL (8.4-10.2); Carbon Dioxide 26 mmol/L (22-32); Chloride 104 mmol/L (98-107); Cholesterol 188 mg/dL (140-199); Estimated Glomerular Filt Rate > 60 mL/min (>60); Glucose 89 mg/dL (80-110); HDL Cholesterol 76 mg/dL (40-60); HEMOLYSIS < 15 (0-50); LDL Cholesterol Calculated 101 mg/dL (<100); Potassium 4.5 mmol/L (3.4-5.1); Sodium 137 mmol/L (137-145); Total Protein 6.1 g/dL (6.3-8.2); Triglycerides 57 mg/dL (35-150)
[2024-01-05 09:53] LABS: Prostate Specific Antigen 4.39 ng/mL (0.10-4.00)
[2024-01-05 09:55] LABS: Thyroid Stimulating Hormone 1.91 uIU/mL (0.47-4.68)
== END ==
PROVIDERS: PCP Internal Medicine; Referring Provider Internal Medicine; Visit Provider Internal Medicine
DX: E78.2 Mixed hyperlipidemia (principal); R97.20 Elevated prostate specific antigen [PSA]; E03.9 Hypothyroidism, unspecified; K40.90 Unilateral inguinal hernia, without obstruction or gangrene, not specified as recurrent
CPT/HCPCS: 36415; 80053; 80061; 84153; 84439; 84443

== ENCOUNTER 2024-02-20 07:53 | Day surgery (SDC) | payer MEDICARE, SELFPAY ==
--- NOTE | 2024-02-20 | PATH_ITS ---
[facility] Accession Number: [id number] No. of containers..02 Tissue . 01 Material submitted: . PART A: esophagus, E-G Junction - GEJ PART B: esophagus - MID ESOPHAGUS . 01 Diagnosis: A. GE JUNCTION: Squamocolumnar junctional mucosa with changes consistent with reflux. No goblet cell metaplasia identified on AB/PAS stain, with control staining appropriately. No fungal organisms, dysplasia, or malignancy. . B. MID ESOPHAGUS, BIOPSY: Esophageal squamous mucosa with increased intraepithelial eosinophils (up to 28 per high-power field). Additional chronic and active inflammation also identified. No fungal organisms identified on AB/PAS stain with control staining appropriately. No dysplasia or malignancy. See comment. V 02/28/2024 1214 Local . 01 Comment: B. The presence of increased intraepithelial eosinophils raises the possibility of eosinophilic esophagitis in the appropriate clinical setting. Differential diagnosis also includes severe reflux alterations and infectious etiologies, particularly margarito organisms, despite the absence of infectious organisms in this sample. Clinical correlation is recommended. . 01 Electronically signed: . Laine Lund MD, Pathologist NPI- [id number] . 01 Gross description: . A. Received in formalin with two patient identifiers and GEJ, are multiple mendes soft tissue fragments aggregating to 0.6 x 0.4 x 0.1 cm. Filtered and submitted in cassette A1. B. Received in formalin with two patient identifiers and mid esophagus, are two mendes soft tissue fragments 0.4 to 0.5 cm in greatest dimension. Submitted in cassette B1. ([id number]) /[facility] 02/23/2024 1028 Local . 01 Pathologist provided ICD-10: K21.00, K21.9, K20.0 . 01 CPT . 543674, 450610, 563235, [id number] Specimen Comment: A courtesy copy of this report has been sent to [phone] Performed at: [address] [id number] MD Jack Ansari MD Phone: [phone]
[2024-02-20 08:21] VITALS: BP 123/72; PULSE 50; RESP 16; TEMP 36.4; O2SAT 99
--- NOTE | 2024-02-20 08:56 | P.HP_ITS ---
History of Present Illness History of Present Illness Date Patient Seen: 02/20/24 Time Patient Seen: 08:56 Chief complaint: SDC Narrative: 73 yo male here for EGD and further dilatation. I reviewed the note by Dr Gonzalez. No significant changes. He was dilated to 13.5 mm back in September. He is off Plavix times 6-7 days. [facility] Medical History Rupture of right quadriceps muscle Personal history of colonic polyps Elevated PSA Atherosclerosis Mixed hyperlipidemia Occlusion of right carotid artery (04/14/15) Carotid bruit (02/01/11) Acquired hypothyroidism (02/01/11) Left inguinal hernia Surgical History [place] teeth removed (10/31/72) Status post neck dissection (03/18/98) S/P hernia repair (01/27/17) History of esophageal dilatation (01/27/12) Status post colonoscopy Family History Brother Age: 70 Diabetes mellitus Family history of diabetes mellitus (DM) Brother Age: 68 Family history of diabetes mellitus (DM) Diabetes mellitus Brother Age: 62 Family history of diabetes mellitus (DM) Diabetes mellitus Father Heart disease Grandfather Heart disease Mother Cancer Grandfather Heart disease Social History marital status: number of children: 0 household members: spouse lives independently: Yes caregiver/support person: No housing: house pets and animals: No education level: other (4 YEAR [employer]) occupational status: other (Retired) current occupational exposures/hazards: No Previous occupational history: Paving [employer] travel history: recent ([place], 1 month in [place], April) leisure activities: exercise (Bicycling.) and reading Smoking Status: Never smoker Tobacco: How many years used: 0 quit status: quit date established (Never Started) second hand exposure: No alcohol intake: current substance use type: does not use and marijuana (Occasional.) Meds Home Medications and Allergies Home Medications Medication Instructions Recorded Confirmed Type hyalur ac-chond sul-colg II-AA 40 20 mg PO QDAY ##0 01/27/17 01/27/24 History mg-80 mg-400 mg capsule (Hyaluronic Acid(with chondroitin-collagenII)) Coenzyme Q10/Vitamin E 500 mg PO DAILY ##0 10/05/19 01/27/24 History turmeric root extract 500 mg 500 mg PO DAILY 10/05/19 02/20/24 History capsule clopidogrel 75 mg tablet 75 mg PO DAILY #90 tabs 04/11/23 02/20/24 Rx levothyroxine 88 mcg tablet 88 mcg PO Q DAY #90 tabs 04/11/23 02/20/24 Rx pravastatin 20 mg tablet 20 mg PO BEDTIME #90 tabs 04/11/23 02/20/24 Rx cholecalciferol (vitamin D3) 50 50 mcg PO DAILY 01/27/24 01/27/24 History mcg (2,000 unit) capsule uyqaghxy-btp-aohts acid 0.4 1 tab PO DAILY 01/27/24 01/27/24 History mg-lycopene 300 mcg-lutein 250 mcg tablet (Centrum Silver) Allergies Allergy/AdvReac Type Severity Reaction Status Date / Time atorvastatin [From LIPITOR] AdvReac Intermediate MUSCLE Verified 02/20/24 08:17 rosuvastatin [From CRESTOR] AdvReac Intermediate Verified 02/20/24 08:17 Review of Systems Review of Systems ROS: Yes All systems reviewed with the patient and are negative except as otherwise documented Exam Vital Signs (past 8 hours): - 02/20/24 08:21 Temperature 97.6 F Pulse Rate 50 L Respiratory Rate 16 Blood Pressure 123/72 Pulse Oximetry 99 Oxygen Delivery Method Room Air Oxygen Delivery Method Room Air Const General: cooperative HENMT Head: normal to inspection Eyes General: appearance normal, both eyes and all related structures Neck Neck: normal visual inspection Chest Chest: normal inspection of the chest Resp Effort & Inspection: normal respiratory effort Cardio Rate: regular rate GI Inspection: normal to inspection Skin General: no rashes or lesions noted Neuro General: patient alert and patient awake Extrem General: normal to inspection and no pedal edema Psych Appearance: grossly normal Assessment & Plan Assessment & Plan narrative: 73-year-old male with a radiation induced proximal esophageal stricture with ongoing dysphagia to pills intermittently. Repeat EGD for further dilatation is pursued today. Time-Based Coding :: [TOTAL MINUTES] spent with patient and on the chart (including review of chart, obtaining history, exam, reviewing outside data, placing orders, documenting exam and treatment plan, and counseling patient) on [DATE].
--- NOTE | 2024-02-20 08:58 | PM.PREOP ---
Pre-operative Note Interval Note History & Physical reviewed/Exam performed by Physician: Yes Changes to H&P: No ASA Class (for procedural sedation): III
--- NOTE | 2024-02-20 10:06 | PM.OP.EGD ---
Operative Date/Time/Diagnoses Date of procedure: 02/20/24 Time of procedure: 10:06 Pre-op diagnosis: Dysphagia and a history of esophageal stricture Post-op diagnosis: same Procedure & Clinicians Study performed: EGD with 45 Indonesian Savary dilatation and biopsies Same procedure as scheduled: Yes Indications: Dysphagia and history of esophageal stricture Surgeon: Saran Puga Procedure Notes SCOAP/Timeout: Done Procedure in detail: After the risks and benefits were explained, written and verbal informed consent was obtained. The patient was brought into the procedure room and placed into the left lateral decubitus position. Please see anesthesia note for sedation details. The scope was introduced into the mouth through the bite block and advanced under direct visualization to the 2nd portion of the duodenum. The scope was slowly withdrawn carefully examining the mucosa for any defects or lesions. Retroflexed views were accomplished in the stomach. The stomach was decompressed, the scope was then removed from the patient who tolerated the procedure well. Sedation minutes: 20 Complications: none Impression: 1. Duodenal: No significant pathology from the bulb through to the 2nd portion. 2. Stomach: Minimal gastropathy appreciated throughout. No ulcers no mass lesions and no outlet obstruction. Retroflexed views of the LES disclosed a Hill valve grade 3-4 consistent with hiatal hernia. 3. Esophagus: The squamocolumnar junction generally correlated with the top of the gastric folds. There was a sliding hiatal hernia. GEJ was at roughly 39 cm from the incisors. Interestingly, throughout the entire esophagus there was evidence of circumferential tightly grouped rings somewhat suggestive of underlying eosinophilic esophagitis. I did not appreciate any active erosive esophagitis. Biopsies were acquired from the level of GE junction/distal esophagus and then a separate set was acquired from the mid esophagus to exclude EOE. These biopsies were acquired after an empiric dilatation was performed with the 45 [place] Savary dilator sliding over the previously placed floppy guidewire. When I 1st interrogated the upper esophagus I did not appreciate any discrete stricture per se. The scope required some minimal increased forced to navigate through the upper esophageal sphincter mechanism. I elected to empirically dilate the UES/proximal esophagus in light of prior success with this particular intervention. Again, I did not identify an obvious discrete stricture at this time. Multiple photographs were taken. With the dilatation there was some mild resistance with the 45 Indonesian dilator and on repeat endoscopy there was evidence of some mild mucosal disruption and transient bleeding from the dilatation effect. Endoscopic diagnosis 1. Mild gastropathy 2. Small sliding hiatal hernia 3. Empiric proximal esophageal 45 [place] Savary dilatation 4. Possible underlying eosinophilic esophagitis status post biopsies Post-procedure Plan for aftercare: 1. Await histology. 2. Okay to resume Plavix starting tomorrow. 3. Follow up on histology and clinical response in GI clinic. Disposition: PACU
[2024-02-20 10:10] VITALS: BP 105/69; PULSE 54; RESP 15; TEMP 36.4; O2SAT 98
[2024-02-20 10:15] VITALS: BP 109/70; PULSE 51; RESP 14; O2SAT 99
[2024-02-20 10:20] VITALS: BP 102/50; PULSE 51; RESP 12; O2SAT 99
[2024-02-20 10:30] VITALS: BP 115/61; PULSE 52; RESP 17; O2SAT 98
== END 2024-02-20 10:34 | disposition home or self-care (01) ==
PROVIDERS: PCP Internal Medicine; Referring Provider Internal Medicine Gastroenterology; Visit Provider Internal Medicine Gastroenterology
PROC: 0DJ08ZZ Inspection of Upper Intestinal Tract, Via Natural or Artificial Opening Endoscopic (ICD-10-PCS; CPT 43248; principal; 2024-02-20 09:00)
DX: R13.10 Dysphagia, unspecified (principal); Z87.19 Personal history of other diseases of the digestive system; K31.9 Disease of stomach and duodenum, unspecified; K44.9 Diaphragmatic hernia without obstruction or gangrene
CPT/HCPCS: 43248; 43239; J2704

== ENCOUNTER → 2024-03-17 16:39 | Outpatient (CLI) | payer MEDICARE, SELFPAY ==
[2024-03-17 17:32] LABS: Influenza A - CEPHEID Flu A NEGATIVE (NEGATIVE); Influenza B - CEPHEID Flu B NEGATIVE (NEGATIVE); Respiratory Syncytial Virus Negative (Negative)
[2024-03-17 17:34] LABS: COVID-19 CEPHEID 4-PLEX PCR Negative (Negative)
== END ==
PROVIDERS: PCP Internal Medicine; Visit Provider Physician Assistant Medical
DX: R05.1 Acute cough (principal)
CPT/HCPCS: 0241U

== ENCOUNTER → 2024-03-17 16:49 | Outpatient (CLI) | payer MEDICARE, SELFPAY ==
--- NOTE | 2024-03-17 16:52 | DI.RAD.S_ITS ---
PROCEDURE: XR CHEST 2V INDICATIONS: Cough TECHNIQUE: 2 views of the chest were acquired. COMPARISON: None. FINDINGS: Surgical changes and devices: None. Lungs and pleura: Lungs are clear. No pleural effusions or pneumothorax. The lungs are hyperexpanded, with flattening of the hemidiaphragms seen. Mediastinum: Mediastinal contours are normal. Heart size is normal. Bones and chest wall: No suspicious bony abnormalities. Age-appropriate bony degenerative changes are seen. Soft tissues appear unremarkable. IMPRESSION: No focal infiltrates are seen. No acute cardiopulmonary abnormality is seen. Dictated by: Sal Jain M.D. on 03/17/2024 at 16:32 Approved by: Sal Jain M.D. on 03/17/2024 at 16:32
== END ==
PROVIDERS: PCP Internal Medicine; Referring Provider Physician Assistant Medical; Visit Provider Physician Assistant Medical
DX: R05.1 Acute cough (principal)
CPT/HCPCS: 0241U; 71046

== ENCOUNTER → 2025-01-10 07:19 | Outpatient (CLI) | payer MEDICARE, SELFPAY ==
[2025-01-10 07:38] LABS: Add Manual Diff / Slide Review NO; Hematocrit 41.4 % (41-53); Hemoglobin 14.2 g/dL (13.5-17.5); Lymphocytes Absolute Auto 1900 /uL (1100-4500); Mean Corpuscular HGB Conc 34.4 % (30-36); Mean Corpuscular Hemoglobin 29.8 PG (26-34); Mean Corpuscular Volume 86.6 fL (80-100); Platelet Count 263 X10^3/uL (150-400)
[2025-01-10 08:05] LABS: Alanine Aminotransferase 36 IU/L (<50); Albumin 4.3 g/dL (3.5-5.0); Albumin Globulin Ratio 2.0 (1.0-2.8); Alkaline Phosphatase 53 U/L (38-126); Blood Urea Nitrogen 22 mg/dL (9-20); Calcium 9.4 mg/dL (8.4-10.2); Carbon Dioxide 28 mmol/L (22-32); Chloride 104 mmol/L (98-107); Cholesterol 199 mg/dL (140-199); Estimated Glomerular Filt Rate > 60 mL/min (>60); Globulin 2.2 g/dL (1.7-4.1); Glucose 97 mg/dL (70-99); HDL Cholesterol 84 mg/dL (40-60); HEMOLYSIS < 15 (0-50); Potassium 4.7 mmol/L (3.4-5.1); Sodium 138 mmol/L (137-145); Total Protein 6.5 g/dL (6.3-8.2); Triglycerides 61 mg/dL (35-150)
[2025-01-10 08:21] LABS: Free T4, Direct Thyroxine 1.00 ng/dL (0.78-2.19)
[2025-01-10 08:33] LABS: Prostate Specific Antigen 4.41 ng/mL (0.10-4.00)
[2025-01-10 08:35] LABS: Thyroid Stimulating Hormone 2.98 uIU/mL (0.47-4.68)
== END ==
PROVIDERS: PCP Internal Medicine; Referring Provider Internal Medicine; Visit Provider Internal Medicine
DX: E78.2 Mixed hyperlipidemia (principal); R97.20 Elevated prostate specific antigen [PSA]; E03.9 Hypothyroidism, unspecified; D64.9 Anemia, unspecified
CPT/HCPCS: 36415; 80053; 80061; 84153; 84439; 84443; 85025